=== PATIENT | female | born 1955 | race Caucasian/White ===

== ENCOUNTER 2018-01-31 17:16 | Emergency (ER) | payer MEDICAID ==
[2018-01-31 17:46] VITALS: BP 166/94
--- NOTE | 2018-01-31 18:25 | EDM.PDOC ---
ED HPI GENERAL MEDICAL PROBLEM - General Chief Complaint: Respiratory Problem Stated Complaint: chest pain and coughing Time Seen by Provider: 01/31/18 17:45 Source of Information: Reports: Patient History Limitations: Reports: No Limitations - History of Present Illness INITIAL COMMENTS - FREE TEXT/NARRATIVE: 62-year-old female with persistent recurring chest discomfort at rest over the past week to 2 weeks. She also has a persistent dry cough but no sputum production or fever. She is very anxious. No fevers or chills. She called the clinic 2 days ago and they told her she needs to come to the emergency room and would not see her. She did not feel she needed to go to the emergency room so waited until today but became too nervous so came in. She has no abdominal pain other than a slight discomfort in the epigastric area. When she is up and moving around and doing things she hardly notices it when she lays down at night it feels heavy and painful. No shortness of breath, no diaphoresis. Onset: Unknown/Unsure Location: Reports: Chest, Abdomen Severity: Mild Associated Symptoms: Reports: Chest Pain. Denies: Fever/Chills, Malaise, Nausea /Vomiting, Shortness of Breath Chest Pain Score (Numeric/FACES): 6 - Related Data Allergies Allergy/AdvReac Type Severity Reaction Status Date / Time No Known Allergies Allergy Verified 01/31/18 17:32 Home Meds: Home Meds Citalopram [Citalopram HBr] 40 mg PO DAILY 08/23/14 [History] Acetaminophen/HYDROcodone [[place] 325-5 MG] 1 - 2 tab PO Q4H PRN #30 tablet 07/07 [Rx] Past Medical History - Past Health History Medical/Surgical History: Denies Medical/Surgical History HEENT History: Reports: Impaired Vision Gastrointestinal History: Reports: Celiac Disease Other Gastrointestinal History: doctoring last 2-3 months for abd pain - f/u appt on with Dr Mays [employer]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 OB/BYN History: d&C 1st preg Musculoskeletal History: Reports: Arthritis Other Musculoskeletal History: knee pain - and leg pain - hurt all the time Psychiatric History: Reports: Depression Other Psychiatric History: citolapram - Past Surgical History GI Surgical History: Reports: Cholecystectomy Social & Family History - Tobacco Use Smoking Status *Q: Never Smoker Years of Tobacco use: 20 Used Tobacco, but Quit: Yes Month/Year Tobacco Last Used: 15y Second Hand Smoke Exposure: No - Caffeine Use Caffeine Use: Reports: Coffee, Soda - Alcohol Use Days Per Week of Alcohol Use: 0 - Recreational Drug Use Recreational Drug Use: No ED ROS GENERAL - Review of Systems Review Of Systems: See Below Constitutional: Denies: Fever, Chills Respiratory: Reports: Cough. Denies: Shortness of Breath, Sputum Cardiovascular: Reports: Chest Pain GI/Abdominal: Reports: Abdominal Pain. Denies: Nausea, Vomiting : Reports: No Symptoms Skin: Reports: No Symptoms Neurological: Reports: No Symptoms Psychiatric: Reports: Anxiety ED EXAM, GENERAL - Physical Exam Exam: See Below Exam Limited By: No Limitations General Appearance: Alert, No Apparent Distress, Anxious Eye Exam: Bilateral Eye: Normal Inspection Respiratory/Chest: No Respiratory Distress, Lungs Clear Cardiovascular: Regular Rate, Rhythm GI/Abdominal: Soft, Tender (Slight discomfort in the epigastric area to palpation no guarding or rebound) Extremities: Normal Inspection Neurological: Alert, Oriented Psychiatric: Anxious Skin Exam: Warm, Dry Course - Vital Signs Last Recorded V/S: Last Vital Signs Temp 97.7 F 01/31/18 17:27 Pulse 91 01/31/18 17:27 Resp 20 01/31/18 17:27 BP 166/94 H 01/31/18 17:27 Pulse Ox 96 01/31/18 17:27 - Orders/Labs/Meds Orders: Active Orders 24 hr Category Date Time Status Chest 2V [CR] Routine Exams 01/31/18 17:43 Taken Labs: Laboratory Tests 01/31/18 01/31/18 Range/Units 17:43 17:43 WBC 6.5 (4.5-11.0) K/uL RBC 4.55 (3.30-5.50) M/uL Hgb 13.7 (12.0-15.0) g/dL Hct 40.5 (36.0-48.0) % MCV 89 (80-98) fL MCH 30 (27-31) pg MCHC 34 (32-36) % Plt Count 333 (150-400) K/uL Neut % (Auto) 43 (36-66) % Lymph % (Auto) 46 H (24-44) % [place] % (Auto) 7 H (2-6) % Eos % (Auto) 3 (2-4) % Baso % (Auto) 1 (0-1) % Sodium 144 (140-148) mmol/L Potassium 3.2 L (3.6-5.2) mmol/L Chloride 105 (100-108) mmol/L Carbon Dioxide 26 (21-32) mmol/L Anion Gap 16.2 H (5.0-14.0) mmol/L BUN 9 (7-18) mg/dL Creatinine 0.9 (0.6-1.0) mg/dL Est Cr Clr Drug Dosing 50.60 mL/min Estimated GFR (MDRD) > 60 (>60) Glucose 116 H (74-106) mg/dL Calcium 9.2 (8.5-10.1) mg/dL Troponin I < 0.017 (0.000-0.056) ng/mL - Re-Assessments/Exams Free Text/Narrative Re-Assessment/Exam: 01/31/18 18:26 Two-view chest x-ray was normal, CBC was normal as well. 01/31/18 18:31 The rest of the chemistry profile is negative other than a potassium of 3.2. Troponin is negative. Patient will be started on 20 mg of omeprazole daily and given a prescription for 42. She will take an extra dose the first 2 days. She will recheck with Dr. Mays if not improving satisfactorily or return sooner if worsening. Departure - Departure Time of Disposition: 18:48 Disposition: Home, Self-Care 01 Condition: Good Clinical Impression: Palpitations Acid reflux disease Qualifiers: Esophagitis presence: esophagitis presence not specified Qualified Code(s): K21.9 - Gastro-esophageal reflux disease without esophagitis - Discharge Information Instructions: Gastroesophageal Reflux Disease, Adult, [id number] Referrals: Kevin Mays MD [Primary Care Provider] - Forms: ED Department Discharge Care Plan Goals: Take 2 pills of omeprazole on day 1 and day 2, then one daily for 2-[address] Mays if not improving satisfactorily over the next 7-14 days , or return sooner if worsening or concerns. - My Orders Last 24 Hours: My Active Orders 01/31/18 17:43 Chest 2V [CR] Routine - Assessment/Plan Last 24 Hours: My Active Orders 01/31/18 17:43 Chest 2V [CR] Routine
--- NOTE | 2018-02-03 08:43 | CR ---
Chest 2V FINDINGS: The heart and vascular structures are normal in appearance. No infiltrates or effusions are demonstrated. The skeletal structures are unremarkable. IMPRESSION: Negative exam.
== END 2018-01-31 18:48 | disposition home or self-care (01) ==
LOC: JP.ED 17:16
DX: K21.9 Gastro-esophageal reflux disease without esophagitis (principal); R00.2 Palpitations; Z79.899 Other long term (current) drug therapy; Z87.891 Personal history of nicotine dependence
CPT/HCPCS: 36415; 71046; 71046-26; 80048; 84484; 85025; 99285

== ENCOUNTER 2018-12-03 11:53 | Emergency (ER) | payer MEDICAID ==
[2018-12-03 12:08] VITALS: BP 162/85
--- NOTE | 2018-12-03 12:22 | EDM.PDOC ---
ED HPI GENERAL MEDICAL PROBLEM - General Chief Complaint: General Stated Complaint: TOOK TOO MANY PAIN PILLS Time Seen by Provider: 12/03/18 12:21 Source of Information: Reports: Patient History Limitations: Reports: No Limitations - History of Present Illness INITIAL COMMENTS - FREE TEXT/NARRATIVE: pt has been taking her pain med--norco excessively for the past week. She had an increase in her low back pain. She has a history of shoulder pain and arthritis in her knee. Onset: Other (pt has increase in low back pain which started about 1 week ago. ) Duration: Hour(s): Location: Reports: Back Associated Symptoms: Reports: Other ( pt hurts all over and she does feel shakey. ) Lower Back Pain Score (Numeric/FACES): 10 - Related Data Allergies Allergy/AdvReac Type Severity Reaction Status Date / Time No Known Allergies Allergy Verified 12/03/18 12:05 Home Meds: Home Meds Citalopram [Citalopram HBr] 40 mg PO DAILY 08/23/14 [History] Acetaminophen/HYDROcodone [[place] 325-5 MG] 1 - 2 tab PO Q4H PRN #30 tablet 07/07 [Rx] Gabapentin [Neurontin] 100 mg PO BID 12/03/18 [History] Past Medical History - Past Health History Medical/Surgical History: Denies Medical/Surgical History HEENT History: Reports: Impaired Vision Gastrointestinal History: Reports: Celiac Disease Other Gastrointestinal History: doctoring last 2-3 months for abd pain - f/u appt on [address] Mays 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 Musculoskeletal History: Reports: Arthritis, Back Pain, Chronic Other Musculoskeletal History: knee pain - and leg pain - Psychiatric History: Reports: Depression Other Psychiatric History: citolapram - Past Surgical History Head Surgeries/Procedures: Reports: None HEENT Surgical History: Reports: None GI Surgical History: Reports: Cholecystectomy Musculoskeletal Surgical History: Reports: None Dermatological Surgical History: Reports: None Social & Family History - Tobacco Use Smoking Status *Q: Former Smoker Used Tobacco, but Quit: Yes Month/Year Tobacco Last Used: 1998 Second Hand Smoke Exposure: No - Caffeine Use Caffeine Use: Reports: Coffee - Recreational Drug Use Recreational Drug Use: No ED ROS GENERAL - Review of Systems Review Of Systems: See Below Constitutional: Reports: Malaise, Weakness, Decreased Appetite HEENT: Reports: No Symptoms Respiratory: Reports: No Symptoms Cardiovascular: Reports: No Symptoms Endocrine: Reports: No Symptoms GI/Abdominal: Reports: No Symptoms : Reports: No Symptoms, Other (urine has looked very dark. ) Musculoskeletal: Reports: No Symptoms Skin: Reports: No Symptoms Neurological: Reports: Other (pt has been doing alot of sleeping in the lite of the excessive narco use. ) Psychiatric: Reports: Anxiety Hematologic/Lymphatic: Reports: No Symptoms ED EXAM, GENERAL - Physical Exam Exam: See Below Free Text/Narrative:: Pt is alert and able to give a history. She has only taken one narco today. She has been using them excessively. She has taken as high as 5 at a time. Exam Limited By: No Limitations General Appearance: Alert, No Apparent Distress, Anxious, Other (pupils are equal and reactive. ) Ears: Normal TMs Nose: Normal Inspection Throat/Mouth: Normal Inspection Head: Atraumatic Neck: Normal Inspection Respiratory/Chest: No Respiratory Distress Cardiovascular: Regular Rate, Rhythm GI/Abdominal: Soft, Non-Tender (Female) Exam: Deferred Rectal (Female) Exam: Deferred Back Exam: Normal Inspection Extremities: Normal Inspection Neurological: Alert, Oriented, Normal Cognition Psychiatric: Anxious, Depressed Mood Course - Vital Signs Last Recorded V/S: Last Vital Signs Temp 36.7 C 12/03/18 12:08 Pulse 91 12/03/18 12:08 Resp 18 12/03/18 12:08 BP 162/85 H 12/03/18 12:08 Pulse Ox 98 12/03/18 12:08 - Orders/Labs/Meds Orders: Active Orders 24 hr Category Date Time Status Dietary Supplements [RC] BIDMEALS Care 12/03/18 14:48 Active CULTURE URINE [RM] Stat Lab 12/03/18 14:48 Received Sodium Chloride 0.9% [Normal Saline] 1,000 ml Med 12/03/18 12:45 Active IV ASDIRECTED cefTRIAXone [Rocephin] 1 gm Med 12/03/18 15:15 Active Sodium Chloride 0.9% [Normal Saline] 50 ml IV ONETIME Medication Orders Sodium Chloride (Normal Saline) 1,000 mls @ 999 mls/hr IV ASDIRECTED ISI Last Admin: 12/03/18 13:06 Dose: 999 mls/hr Ceftriaxone Sodium 1 gm/ (Sodium Chloride) 50 mls @ 100 mls/hr IV ONETIME ONE Stop: 12/03/18 15:44 Labs: Laboratory Tests 12/03/18 12/03/18 12/03/18 Range/Units 12:35 12:35 12:35 WBC 7.5 (4.5-11.0) K/uL RBC 4.69 (3.30-5.50) M/uL Hgb 13.7 (12.0-15.0) g/dL Hct 40.4 (36.0-48.0) % MCV 86 (80-98) fL MCH 29 (27-31) pg MCHC 34 (32-36) % Plt Count 375 (150-400) K/uL Neut % (Auto) 76 H (36-66) % Lymph % (Auto) 20 L (24-44) % [place] % (Auto) 4 (2-6) % Eos % (Auto) 0 L (2-4) % Baso % (Auto) 0 (0-1) % Sodium 140 (140-148) mmol/L Potassium 3.4 L (3.6-5.2) mmol/L Chloride 102 (100-108) mmol/L Carbon Dioxide 25 (21-32) mmol/L Anion Gap 16.4 H (5.0-14.0) mmol/L BUN 11 (7-18) mg/dL Creatinine 0.7 (0.6-1.0) mg/dL Est Cr Clr Drug Dosing 64.21 mL/min Estimated GFR (MDRD) > 60 (>60) Glucose 104 (74-106) mg/dL Calcium 9.3 (8.5-10.1) mg/dL Total Bilirubin 0.4 (0.2-1.0) mg/dL AST 16 (15-37) U/L ALT 24 (12-78) U/L Alkaline Phosphatase 51 (46-116) U/L C-Reactive Protein 0.03 (0.0-0.3) mg/dL Total Protein 7.3 (6.4-8.2) g/dL Albumin 3.9 (3.4-5.0) g/dL Globulin 3.4 (2.3-3.5) g/dL Albumin/Globulin Ratio 1.1 L (1.2-2.2) Urine Color Urine Appearance Urine pH (4.5-8.0) Ur Specific [place] (1.008-1.030) Urine Protein (NEGATIVE) mg/dL Urine Glucose (UA) (NEGATIVE) mg/dL Urine Ketones (NEGATIVE) mg/dL Urine Occult Blood (NEGATIVE) Urine Nitrite (NEGATIVE) Urine Bilirubin (NEGATIVE) Urine Urobilinogen (NORMAL) mg/dL Ur Leukocyte Esterase (NEGATIVE) Urine RBC (0-5) Urine WBC (0-5) Ur Epithelial Cells Amorphous Sediment Urine Bacteria Urine Mucus Urine Opiates Screen (NEGATIVE) Ur Oxycodone Screen (NEGATIVE) Urine Methadone Screen (NEGATIVE) Ur Propoxyphene Screen (NEGATIVE) Ur Barbiturates Screen (NEGATIVE) Ur Tricyclics Screen (NEGATIVE) Ur Phencyclidine Scrn (NEGATIVE) Ur Amphetamine Screen (NEGATIVE) U Methamphetamines Scrn (NEGATIVE) Urine MDMA Screen (NEGATIVE) U Benzodiazepines Scrn (NEGATIVE) U Cocaine Metab Screen (NEGATIVE) U Marijuana (THC) Screen (NEGATIVE) 12/03/18 12/03/18 Range/Units 14:11 14:11 WBC (4.5-11.0) K/uL RBC (3.30-5.50) M/uL Hgb (12.0-15.0) g/dL Hct (36.0-48.0) % MCV (80-98) fL MCH (27-31) pg MCHC (32-36) % Plt Count (150-400) K/uL Neut % (Auto) (36-66) % Lymph % (Auto) (24-44) % [place] % (Auto) (2-6) % Eos % (Auto) (2-4) % Baso % (Auto) (0-1) % Sodium (140-148) mmol/L Potassium (3.6-5.2) mmol/L Chloride (100-108) mmol/L Carbon Dioxide (21-32) mmol/L Anion Gap (5.0-14.0) mmol/L BUN (7-18) mg/dL Creatinine (0.6-1.0) mg/dL Est Cr Clr Drug Dosing mL/min Estimated GFR (MDRD) (>60) Glucose (74-106) mg/dL Calcium (8.5-10.1) mg/dL Total Bilirubin (0.2-1.0) mg/dL AST (15-37) U/L ALT (12-78) U/L Alkaline Phosphatase (46-116) U/L C-Reactive Protein (0.0-0.3) mg/dL Total Protein (6.4-8.2) g/dL Albumin (3.4-5.0) g/dL Globulin (2.3-3.5) g/dL Albumin/Globulin Ratio (1.2-2.2) Urine Color Yellow Urine Appearance Slightly cloudy Urine pH 5.0 (4.5-8.0) Ur Specific [place] 1.020 (1.008-1.030) Urine Protein Negative (NEGATIVE) mg/dL Urine Glucose (UA) Normal (NEGATIVE) mg/dL Urine Ketones 150 H (NEGATIVE) mg/dL Urine Occult Blood Trace (NEGATIVE) Urine Nitrite Negative (NEGATIVE) Urine Bilirubin Negative (NEGATIVE) Urine Urobilinogen Normal (NORMAL) mg/dL Ur Leukocyte Esterase Moderate (NEGATIVE) Urine RBC 5-10 H (0-5) Urine WBC 30-40 H (0-5) Ur Epithelial Cells Few Amorphous Sediment Not seen Urine Bacteria Few Urine Mucus Numerous Urine Opiates Screen Presumptive positive H (NEGATIVE) Ur Oxycodone Screen Presumptive positive H (NEGATIVE) Urine Methadone Screen Negative (NEGATIVE) Ur Propoxyphene Screen Negative (NEGATIVE) Ur Barbiturates Screen Negative (NEGATIVE) Ur Tricyclics Screen Negative (NEGATIVE) Ur Phencyclidine Scrn Negative (NEGATIVE) Ur Amphetamine Screen Negative (NEGATIVE) U Methamphetamines Scrn Negative (NEGATIVE) Urine MDMA Screen Negative (NEGATIVE) U Benzodiazepines Scrn Negative (NEGATIVE) U Cocaine Metab Screen Negative (NEGATIVE) U Marijuana (THC) Screen Negative (NEGATIVE) Meds: Medications Generic Name Dose Route Start Last Admin Trade Name Freq PRN Reason Stop Dose Admin Sodium Chloride 1,000 mls @ 999 mls/hr 12/03/18 12:45 12/03/18 13:06 Normal Saline IV 999 mls/hr ASDIRECTED ISI Administration Ceftriaxone Sodium 1 gm/ 50 mls @ 100 mls/hr 12/03/18 15:15 Sodium Chloride IV 12/03/18 15:44 ONETIME ONE - Re-Assessments/Exams Free Text/Narrative Re-Assessment/Exam: 12/03/18 14:56 pt was found to have a UTI. She has normal lab work otherwise. She was given a liter of fluid and rocephen 1 gm. Her drug screen was neg except for the opiates. Her lumbar spine seriies looked good. Departure - Departure Time of Disposition: 14:57 Disposition: Home, Self-Care 01 Condition: Fair Clinical Impression: UTI (urinary tract infection), Medication adverse effect, Drug abuse - Discharge Information Referrals: PCP,None [Primary Care Provider] - Forms: ED Department Discharge Care Plan Goals: push fluids, cipro 500mg bid for 7 days. Keep appt with Dr Mays on the . increase gabapentin to 200mg--2 tabs bid. - My Orders Last 24 Hours: My Active Orders 12/03/18 12:45 Sodium Chloride 0.9% [Normal Saline] 1,000 ml IV ASDIRECTED 12/03/18 14:48 Dietary Supplements [RC] BIDMEALS CULTURE URINE [RM] Stat 12/03/18 15:15 cefTRIAXone [Rocephin] 1 gm Sodium Chloride 0.9% [Normal Saline] 50 ml IV ONETIME - Assessment/Plan Last 24 Hours: My Active Orders 12/03/18 12:45 Sodium Chloride 0.9% [Normal Saline] 1,000 ml IV ASDIRECTED 12/03/18 14:48 Dietary Supplements [RC] BIDMEALS CULTURE URINE [RM] Stat 12/03/18 15:15 cefTRIAXone [Rocephin] 1 gm Sodium Chloride 0.9% [Normal Saline] 50 ml IV ONETIME
[2018-12-03] MEDS ORDERED: Sodium Chloride 0.9% 1,000 ML IV SCH (12:45)
--- NOTE | 2018-12-03 14:39 | CR ---
Lumbar Spine Min 4V CLINICAL HISTORY: Low back pain FINDINGS: The vertebral body heights are maintained. There is mild narrowing the L5-S1 disc space. 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
[2018-12-03] MEDS ORDERED: cefTRIAXone 1 GM in Sodium Chloride 0.9% 50 ML IV ONE ×2 (14:48→15:15)
== END 2018-12-03 15:46 | disposition home or self-care (01) ==
LOC: JP.ED 11:53
DX: N39.0 Urinary tract infection, site not specified (principal); R25.1 Tremor, unspecified; M54.5 Low back pain; T39.1X5A Adverse effect of 4-Aminophenol derivatives, initial encounter; F19.10 Other psychoactive substance abuse, uncomplicated; F32.9 Major depressive disorder, single episode, unspecified; Z87.891 Personal history of nicotine dependence
CPT/HCPCS: 36415; 72110; 80053; 80305; 81001; 85025; 86140; 87086; 96361; 96365; 99284; J0696; J7030; J7050

== ENCOUNTER 2018-12-04 16:08 | Emergency (ER) | payer MEDICAID ==
[2018-12-04] MEDS ORDERED: cloNIDine 0.1 MG Tab PO ONE (16:51)
[2018-12-04] MEDS ORDERED: LORazepam 0.5 MG Tab PO ONE (16:51)
--- NOTE | 2018-12-04 16:55 | EDM.PDOC ---
<OfficerNatanael - Last Filed: 12/04/18 16:52> ED HPI GENERAL MEDICAL PROBLEM - General Chief Complaint: General Stated Complaint: MEDICAL VIA [facility] Time Seen by Provider: 12/04/18 16:42 Source of Information: Reports: Patient, Family, Old Records, RN Notes Reviewed History Limitations: Reports: No Limitations - History of Present Illness INITIAL COMMENTS - FREE TEXT/NARRATIVE: 63-year-old female presents emergency department today with complaint of chills , tremors, diarrhea and anxiety. She was recently in the emergency department had extensive workup yesterday for similar complaints was found to have a urinary tract infection. Has a known history of narcotic use which she is taking for chronic shoulder pain admits to consumption of narcotics in excess. She is now out of her narcotic medication for the past 72 hours Generalized Pain Score (Numeric/FACES): 10 - Related Data Allergies Allergy/AdvReac Type Severity Reaction Status Date / Time No Known Allergies Allergy Verified 12/04/18 16:20 Home Meds: Home Meds Citalopram [Citalopram HBr] 40 mg PO DAILY 08/23/14 [History] Gabapentin [Neurontin] 100 mg PO BID 12/03/18 [History] Ciprofloxacin HCl [Cipro] 1 tab PO BID 12/04/18 [History] Past Medical History HEENT History: Reports: Impaired Vision Gastrointestinal History: Reports: Celiac Disease Other Gastrointestinal History: doctoring last 2-3 months for abd pain - f/u appt on [address] 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 Musculoskeletal History: Reports: Arthritis, Back Pain, Chronic Other Musculoskeletal History: knee pain - and leg pain - Psychiatric History: Reports: Depression Other Psychiatric History: citolapram - Past Surgical History GI Surgical History: Reports: Cholecystectomy Social & Family History - Tobacco Use Smoking Status *Q: Never Smoker - Caffeine Use Caffeine Use: Reports: Coffee - Recreational Drug Use Recreational Drug Use: No ED ROS GENERAL - Review of Systems Review Of Systems: See Below Constitutional: Reports: Chills HEENT: Reports: No Symptoms Respiratory: Reports: No Symptoms Cardiovascular: Reports: No Symptoms GI/Abdominal: Reports: Diarrhea. Denies: Abdominal Pain, Nausea, Vomiting : Reports: No Symptoms Musculoskeletal: Reports: No Symptoms Skin: Reports: No Symptoms Neurological: Reports: No Symptoms Psychiatric: Reports: Agitation, Anxiety, Mood Lability ED EXAM, GENERAL - Physical Exam Exam: See Below Exam Limited By: No Limitations General Appearance: Alert, Mild Distress Eye Exam: Bilateral Eye: PERRL Throat/Mouth: No Airway Compromise Head: Atraumatic, Normocephalic Neck: Normal Inspection, Supple, Non-Tender, Full Range of Motion Respiratory/Chest: No Respiratory Distress, Lungs Clear, Normal Breath Sounds, No Accessory Muscle Use Cardiovascular: Regular Rate, Rhythm, No Murmur GI/Abdominal: Soft, Non-Tender Course - Vital Signs Last Recorded V/S: Last Vital Signs Temp 36.9 C 12/04/18 16:13 Pulse 64 12/04/18 18:30 Resp 19 12/04/18 18:30 BP 146/70 H 12/04/18 18:30 Pulse Ox 94 L 12/04/18 18:30 - Orders/Labs/Meds Labs: Laboratory Tests 12/04/18 12/04/18 12/04/18 Range/Units 16:46 16:46 16:46 WBC 7.8 (4.5-11.0) K/uL RBC 4.34 (3.30-5.50) M/uL Hgb 12.6 (12.0-15.0) g/dL Hct 37.0 (36.0-48.0) % MCV 85 (80-98) fL MCH 29 (27-31) pg MCHC 34 (32-36) % Plt Count 366 (150-400) K/uL Neut % (Auto) 65 (36-66) % Lymph % (Auto) 27 (24-44) % [place] % (Auto) 7 H (2-6) % Eos % (Auto) 0 L (2-4) % Baso % (Auto) 0 (0-1) % Sodium (140-148) mmol/L Potassium (3.6-5.2) mmol/L Chloride (100-108) mmol/L Carbon Dioxide (21-32) mmol/L Anion Gap (5.0-14.0) mmol/L BUN (7-18) mg/dL Creatinine (0.6-1.0) mg/dL Est Cr Clr Drug Dosing mL/min Estimated GFR (MDRD) (>60) Glucose (74-106) mg/dL Calcium (8.5-10.1) mg/dL Total Bilirubin (0.2-1.0) mg/dL AST (15-37) U/L ALT (12-78) U/L Alkaline Phosphatase (46-116) U/L Total Protein (6.4-8.2) g/dL Albumin (3.4-5.0) g/dL Globulin (2.3-3.5) g/dL Albumin/Globulin Ratio (1.2-2.2) TSH, Ultra Sensitive (0.358-3.740) uIU/mL Salicylates 6.1 (2.0-20.0) mg/dL Acetaminophen < 2.0 L (10.0-30.0) ug/mL Ethyl Alcohol mg/dL 12/04/18 12/04/18 12/04/18 Range/Units 16:46 16:46 16:46 WBC (4.5-11.0) K/uL RBC (3.30-5.50) M/uL Hgb (12.0-15.0) g/dL Hct (36.0-48.0) % MCV (80-98) fL MCH (27-31) pg MCHC (32-36) % Plt Count (150-400) K/uL Neut % (Auto) (36-66) % Lymph % (Auto) (24-44) % [place] % (Auto) (2-6) % Eos % (Auto) (2-4) % Baso % (Auto) (0-1) % Sodium 141 (140-148) mmol/L Potassium 2.9 L* (3.6-5.2) mmol/L Chloride 104 (100-108) mmol/L Carbon Dioxide 25 (21-32) mmol/L Anion Gap 14.9 H (5.0-14.0) mmol/L BUN 8 (7-18) mg/dL Creatinine 0.7 (0.6-1.0) mg/dL Est Cr Clr Drug Dosing 64.21 mL/min Estimated GFR (MDRD) > 60 (>60) Glucose 90 (74-106) mg/dL Calcium 9.2 (8.5-10.1) mg/dL Total Bilirubin 0.3 (0.2-1.0) mg/dL AST 15 (15-37) U/L ALT 20 (12-78) U/L Alkaline Phosphatase 46 (46-116) U/L Total Protein 6.8 (6.4-8.2) g/dL Albumin 3.7 (3.4-5.0) g/dL Globulin 3.1 (2.3-3.5) g/dL Albumin/Globulin Ratio 1.2 (1.2-2.2) TSH, Ultra Sensitive 2.054 (0.358-3.740) uIU/mL Salicylates (2.0-20.0) mg/dL Acetaminophen (10.0-30.0) ug/mL Ethyl Alcohol < 3 mg/dL Meds: Medications Discontinued Medications Generic Name Dose Route Start Last Admin Trade Name Freq PRN Reason Stop Dose Admin Clonidine HCl 0.1 mg 12/04/18 16:51 12/04/18 17:01 Catapres PO 12/04/18 16:52 0.1 mg ONETIME ONE Administration Lactated Ringer's 1,000 mls @ 450 mls/hr 12/04/18 17:30 12/04/18 17:49 Ringers, Lactated IV 12/04/18 19:43 999 mls/hr BOLUS ONE Administration Potassium Chloride 20 meq/ 100 mls @ 50 mls/hr 12/04/18 17:30 12/04/18 17:57 Premix IV 12/04/18 19:29 50 mls/hr ONETIME ONE Administration Lidocaine HCl 5 ml 12/04/18 17:36 12/04/18 17:57 Xylocaine-Mpf 1% INJECT 12/04/18 17:37 2 ml ONETIME ONE Administration Lorazepam 0.5 mg 12/04/18 16:51 12/04/18 17:02 Ativan PO 12/04/18 16:52 0.5 mg ONETIME ONE Administration Potassium Chloride 40 meq 12/04/18 17:27 12/04/18 17:49 Klor-Con M20 PO 12/04/18 17:28 40 meq ONETIME ONE Administration Departure - Departure Disposition: Home, Self-Care 01 Clinical Impression: Hypokalemia, Anxiety - Discharge Information Instructions: Potassium Content of Foods Referrals: PCP,None [Primary Care Provider] - Forms: ED Department Discharge Additional Instructions: Take KCL as directed. Take Lorazepam as needed for anxiety. If not already doing so take loperamide([id number]) as directed on the package for diarrhea control. Recheck with your doctor no later than early next week. <Ronnie Gallardo G - Last Filed: 12/04/18 20:04> Departure - Departure Time of Disposition: 20:00 Condition: Fair - Discharge Information *PRESCRIPTION DRUG MONITORING PROGRAM REVIEWED*: No *COPY OF PRESCRIPTION DRUG MONITORING REPORT IN PATIENT APRIL: No
[2018-12-04] MEDS ORDERED: Potassium Chloride 20 MEQ Tab.ER PO ONE (17:27)
[2018-12-04] MEDS ORDERED: Lactated Ringers 1,000 ML IV ONE (17:30)
[2018-12-04] MEDS ORDERED: Potassium Chloride 20 MEQ in Premix Bag 1 BAG IV ONE (17:30)
[2018-12-04 20:01] VITALS: BP 149/74
== END 2018-12-04 20:29 | disposition home or self-care (01) ==
LOC: JP.ED 16:08
DX: E87.6 Hypokalemia (principal); F41.9 Anxiety disorder, unspecified; Z79.899 Other long term (current) drug therapy
CPT/HCPCS: 36415; 80053; 84443; 85025; 96365; 96366; 99284; A9270; G0480; J3480; J7120

== ENCOUNTER 2019-02-01 16:22 | Emergency (ER) | payer MEDICAID ==
[2019-02-01 16:47] VITALS: BP 157/89
[2019-02-01] MEDS ORDERED: Ondansetron 4 MG Tab.DIS PO ONE (17:10)
--- NOTE | 2019-02-01 17:42 | EDM.PDOC ---
ED HPI GENERAL MEDICAL PROBLEM - General Chief Complaint: Drug or Alcohol Abuse Stated Complaint: TOOK TOO MANY PILLS Time Seen by Provider: 02/01/19 17:00 Source of Information: Reports: Patient, Family History Limitations: Reports: No Limitations - History of Present Illness INITIAL COMMENTS - FREE TEXT/NARRATIVE: 63-year-old female, very anxious with persistent nausea and vomiting for the past 48 hours. She was taking 12-14 gabapentin daily, and Saturday started feeling ill so she stopped the medication. She is having symptoms similar to symptoms she had 2 months ago when she overused her medications. She has some back discomfort but no abdominal pain, no fevers or chills, just slight early diarrhea. Denies a headache. Onset: Unknown/Unsure Duration: Day(s): (Symptoms for 2 days) Associated Symptoms: Reports: Loss of Appetite, Malaise, Nausea/Vomiting. Denies: Fever/Chills, Shortness of Breath lower back Pain Score (Numeric/FACES): 5 - Related Data Allergies Allergy/AdvReac Type Severity Reaction Status Date / Time No Known Allergies Allergy Verified 02/01/19 16:49 Home Meds: Home Meds Citalopram [Citalopram HBr] 40 mg PO DAILY 08/23/14 [History] Gabapentin [Neurontin] 100 mg PO BID 12/03/18 [History] Past Medical History HEENT History: Reports: Impaired Vision Gastrointestinal History: Reports: Celiac Disease Other Gastrointestinal History: doctoring last 2-3 months for abd pain - f/u appt on [address] Mays PACU NURSE History: Reports: Other PACU NURSE History: d&C 1st preg Musculoskeletal History: Reports: Arthritis, Back Pain, Chronic Other Musculoskeletal History: knee pain - and leg pain - Psychiatric History: Reports: Addiction, Depression Other Psychiatric History: citolapram - Past Surgical History Head Surgeries/Procedures: Reports: None GI Surgical History: Reports: Cholecystectomy Dermatological Surgical History: Reports: None Social & Family History - Tobacco Use Smoking Status *Q: Never Smoker - Caffeine Use Caffeine Use: Reports: Coffee, Soda, Tea - Recreational Drug Use Recreational Drug Use: No ED ROS GENERAL - Review of Systems Review Of Systems: See Below Constitutional: Reports: Malaise, Decreased Appetite. Denies: Fever, Chills HEENT: Denies: Throat Pain Respiratory: Denies: Shortness of Breath, Cough Cardiovascular: Denies: Chest Pain GI/Abdominal: Reports: Diarrhea, Nausea, Vomiting. Denies: Abdominal Pain : Reports: No Symptoms Musculoskeletal: Reports: Back Pain Skin: Reports: No Symptoms Neurological: Denies: Headache Psychiatric: Reports: Anxiety ED EXAM, GENERAL - Physical Exam Exam: See Below Exam Limited By: No Limitations General Appearance: Alert, Moderate Distress Eye Exam: Bilateral Eye: Normal Inspection (Normal hydration, no jaundice) Respiratory/Chest: No Respiratory Distress, Lungs Clear Cardiovascular: Tachycardia GI/Abdominal: Soft, Tender (Patient is tender directly over the epigastric area to palpation, no guarding or rebound) Extremities: No: Pedal Edema Neurological: Alert, Oriented Psychiatric: Anxious (Extremely anxious) Skin Exam: Warm, Dry Course - Vital Signs Last Recorded V/S: Last Vital Signs Temp 97.1 F 02/01/19 16:48 Pulse 110 H 02/01/19 16:48 Resp 20 02/01/19 16:48 BP 157/89 H 02/01/19 16:48 Pulse Ox 98 02/01/19 16:48 - Orders/Labs/Meds Labs: Laboratory Tests 02/01/19 02/01/19 Range/Units 17:10 17:10 WBC 10.5 (4.5-11.0) K/uL RBC 5.15 (3.30-5.50) M/uL Hgb 15.1 H D (12.0-15.0) g/dL Hct 45.1 (36.0-48.0) % MCV 88 (80-98) fL MCH 29 (27-31) pg MCHC 34 (32-36) % Plt Count 467 H (150-400) K/uL Neut % (Auto) 68 H (36-66) % Lymph % (Auto) 22 L (24-44) % Bailey % (Auto) 8 H (2-6) % Eos % (Auto) 1 L (2-4) % Baso % (Auto) 1 (0-1) % Sodium 136 L (140-148) mmol/L Potassium 3.7 (3.6-5.2) mmol/L Chloride 97 L (100-108) mmol/L Carbon Dioxide 25 (21-32) mmol/L Anion Gap 17.7 H (5.0-14.0) mmol/L BUN 14 D (7-18) mg/dL Creatinine 0.7 (0.6-1.0) mg/dL Est Cr Clr Drug Dosing 64.21 mL/min Estimated GFR (MDRD) > 60 (>60) Glucose 111 H (74-106) mg/dL Calcium 10.3 H (8.5-10.1) mg/dL Total Bilirubin 0.6 D (0.2-1.0) mg/dL AST 20 (15-37) U/L ALT 32 (12-78) U/L Alkaline Phosphatase 79 (46-116) U/L Total Protein 8.7 H (6.4-8.2) g/dL Albumin 4.5 (3.4-5.0) g/dL Globulin 4.2 H (2.3-3.5) g/dL Albumin/Globulin Ratio 1.1 L (1.2-2.2) Meds: Medications Discontinued Medications Generic Name Dose Route Start Last Admin Trade Name Freq PRN Reason Stop Dose Admin Ondansetron HCl 4 mg 02/01/19 17:10 02/01/19 17:18 Zofran Odt PO 02/01/19 17:11 4 mg ONETIME ONE Administration - Re-Assessments/Exams Free Text/Narrative Re-Assessment/Exam: 02/01/19 17:42 Patient was given 4 mg sublingual Zofran and a CBC and CMP were obtained. 02/01/19 17:58 Symptoms improved after the Zofran, CBC and CMP returned reassuring. On further questioning the patient admitted she was out however gabapentin and has not had any for several days. She is interested in stopping the medication. She'll make an appointment with Dr. Mays or another provider in the next few days to talk about other options, and will be given 5 additional doses of Zofran to use as needed for nausea. Departure - Departure Time of Disposition: 18:09 Disposition: Home, Self-Care 01 Condition: Fair Clinical Impression: Gabapentin adverse reaction Qualifiers: Encounter type: initial encounter Qualified Code(s): T42.6X5A - Adverse effect of other antiepileptic and sedative-hypnotic drugs, initial encounter Withdrawal symptoms, drug or narcotic Qualifiers: Substance type: other psychoactive substance Qualified Code(s): F19.939 - Other psychoactive substance use, unspecified with withdrawal, unspecified - Discharge Information Instructions: Chemical Dependency Referrals: Kevin Mays MD [Primary Care Provider] - Forms: ED Department Discharge Care Plan Goals: Medical follow-up appointment in the next several days with either Dr. Mays or a new provider. Use Zofran every 6-8 hours for persistent nausea. Stay hydrated, you should start feeling better fairly rapidly. Return to ER if you feel you are worsening.
== END 2019-02-01 18:09 | disposition home or self-care (01) ==
LOC: JP.ED 16:22
DX: R11.2 Nausea with vomiting, unspecified (principal); T42.6X5A Adverse effect of other antiepileptic and sedative-hypnotic drugs, initial encounter; F19.939 Other psychoactive substance use, unspecified with withdrawal, unspecified; Z79.899 Other long term (current) drug therapy
CPT/HCPCS: 36415; 80053; 85025; 99284; A9270

== ENCOUNTER 2024-11-07 12:46 | Emergency (ER) | payer MEDICARE ==
[2024-11-07 15:21] LABS: BASOPHILS ABSOLUTE AUTO 0.05 K/uL (0.00-0.10); BASOPHILS PERCENT AUTO 0.7 % (0.1-1.3); EOSINOPHILS ABSOLUTE AUTO 0.04 K/uL (0.00-0.40); EOSINOPHILS PERCENT AUTO 0.6 % (0.0-5.4); HEMATOCRIT 39.5 % (34.3-46.0); HEMOGLOBIN 13.5 g/dL (11.2-15.5); IMMATURE GRAN PERCENT AUTO 0.1 % (0.0-0.7); LYMPHOCYTES ABSOLUTE AUTO 1.59 K/uL (0.8-3.3); MEAN CORPUSCULAR HEMOGLOBIN 29.8 pg (31.6-35.5); MEAN CORPUSCULAR HGB CONC 34.2 g/dL (31.6-35.5); MEAN CORPUSCULAR VOLUME 87.2 fL (81.4-99.0); MONOCYTES ABSOLUTE AUTO 0.42 K/uL (0.20-0.90); MONOCYTES PERCENT AUTO 6.1 % (3.3-12.6); NEUTROPHILS PERCENT AUTO 69.5 % (40.0-78.1); PLATELET COUNT,PLT 317 K/uL (130-375); RED BLOOD CELL COUNT 4.53 M/uL (3.77-5.24); WHITE BLOOD CELL COUNT,WBC 6.9 K/uL (3.2-11.0)
[2024-11-07] MEDS: Meclizine 25 MG Tab PO ONE (15:21)
[2024-11-07 15:23] LABS: IMMATURE GRAN ABSOLUTE AUTO 0.01 K/uL (0.00-0.23)
[2024-11-07 15:32] LABS: APPEARANCE,URINE CLEAR (CLEAR); BILIRUBIN,URINE NEGATIVE (NEGATIVE); COLOR,URINE YELLOW (YELLOW); GLUCOSE,URINE NEGATIVE (NEGATIVE); KETONES,URINE 15 mg/dL (NEGATIVE); LEUKOCYTE ESTERASE,URINE SMALL (NEGATIVE); NITRITE,URINE NEGATIVE (NEGATIVE); OCCULT BLOOD,URINE TRACE-INTACT (NEGATIVE); PH,URINE 5.5 (5.0-8.0); PROTEIN,URINE NEGATIVE (NEGATIVE); UROBILINOGEN,URINE 0.2 EU/dL (0.2-1.0)
[2024-11-07 15:43] LABS: A/G RATIO 1.2 (1.2-2.2); ALANINE AMINOTRANSFERASE,ALT 16 U/L (12-78); ALBUMIN 4.1 g/dL (3.4-5.0); ALKALINE PHOSPHATASE 59 U/L (46-116); ASPARTATE AMNIOTRANSFERASE,AST 16 U/L (15-37); BILIRUBIN TOTAL 0.4 mg/dL (0.2-1.0); BLOOD UREA NITROGEN,BUN 9 mg/dL (7-18); CALCIUM 8.9 mg/dL (8.5-10.1); CARBON DIOXIDE,CO2 28 mmol/L (21-32); CHLORIDE,CL 103 mmol/L (100-108); CREATININE 0.7 mg/dL (0.6-1.0); EST CRCL DRUG DOSING (CG) 59.15 mL/min; ESTIMATED GFR 93 mL/min (>60); GLUCOSE RANDOM 93 mg/dL (74-106); POTASSIUM,K 3.7 mmol/L (3.6-5.2); PROTEIN TOTAL,TP 7.4 g/dL (6.4-8.2); SODIUM,NA 142 mmol/L (140-148)
[2024-11-07 15:51] LABS: C-REACTIVE PROTEIN < 0.50 mg/dL (<0.50); SEDIMENTATION RATE MANUAL 15 mm/hr (0-25)
[2024-11-07 15:51] LABS: AMORPHOUS SEDIMENT,URINE NOT SEEN; BACTERIA,URINE FEW; EPITHELIAL CELLS,URINE FEW; MUCUS,URINE FEW; RBC,URINE 0-5 (0-5)
[2024-11-07] MEDS: Sodium Chloride 0.9% 10 ML Syringe FLUSH ONE (16:06)
[2024-11-07] MEDS: Iopamidol 612 MG/ML 100 ML Bottle IV SCH (16:06)
[2024-11-07] MEDS: Sodium Chloride 0.9% 80 ML IV SCH (16:06)
[2024-11-07 17:49] VITALS: BP 142/91; PULSE 77
== END 2024-11-07 17:48 | disposition home or self-care (01) ==
LOC: JP.ED 12:46
DX: R42 Dizziness and giddiness (principal); Z90.49 Acquired absence of other specified parts of digestive tract; Z79.899 Other long term (current) drug therapy
CPT/HCPCS: 36415; 70470; 80053; 81001; 85025; 85651; 86140; 87086; 99284; A9270; J3490; Q9967

== ENCOUNTER 2024-12-22 09:07 | Day surgery (SDC) | payer MEDICARE ==
[2024-12-22] MEDS ORDERED: Lactated Ringers 1,000 ML IV SCH (09:50)
[2024-12-22] MEDS ORDERED: fentaNYL 50 MCG/ML SDV ONE (10:21)
[2024-12-22] MEDS ORDERED: Propofol 200 MG/20 ML SDV ONE (10:21)
[2024-12-22 12:19] VITALS: BP 128/65; PULSE 67
== END 2024-12-22 11:45 | disposition home or self-care (01) ==
LOC: JP.SDS 09:07
PROVIDERS: ATTEND Surgery
DX: R10.13 Epigastric pain (principal)
CPT/HCPCS: 43239; J2704; J3010; 00731-QZ; 88305